=== PATIENT | female | born 1960 | race Caucasian/White ===

== ENCOUNTER → 2017-07-21 | Outpatient (CLI) | payer OTHER ==
--- NOTE | 2017-07-25 15:08 | RADIOLOGY REPORT PS360 ---
DIG MAMM-SCREEN MARGARITA W/CAD CAD Screening COMPARISON: Digital mammograms 04/23/2016 and 03/22/2015 INDICATION: There is no personal or family history of breast cancer. There is been previous biopsy right breast TECHNIQUE: Standard CC and MLO images were obtained. R2 CAD reviewed. FINDINGS: Mild scattered fibroglandular densities are seen in both breast in a background of fatty parenchyma. There are couple benign-appearing calcination is in each breast. Is a small well-defined nodular density low in the axillary, right breast likely an intramammary node. There is no suspicious lesion and there are no suspicious microcalcifications. IMPRESSION: Fibrofatty parenchyma with no suspicious lesion seen recommend yearly follow-up BI-RADS CATEGORY: 2_Benign RECOMMENDED FOLLOWUP: 12M 12 MONTH FOLLOW-UP (A letter has been sent to the patient regarding results of the study.)
== END ==
LOC: RAD 15:46
DX: Z12.31 Encounter for screening mammogram for malignant neoplasm of breast (principal)
CPT/HCPCS: G0202